=== PATIENT | female | born 1985 | race Two or more races ===

== ENCOUNTER 2018-02-27 15:02 | Emergency (ER) | payer OTHER ==
[~2018-02-27] VITALS: Ht 162.6 cm; Wt 57.6 kg
[2018-02-27 15:15] VITALS: BP 127/78
--- NOTE | 2018-02-27 15:15 | NUR ---
ED Nurse Note: pt came in self ambulatory c/o left arm pain 11/04. per boyfriend (franki) pt fell doing box jumps and landed on left arm. per boyfriend " her bone was protruding so i freaked out and pushed it back in place". pt arm elbow region is swollen. pt looks comfortable. took 1 200mg advil. vss. will monitor further and await new orders
[2018-02-27] MEDS ORDERED: fentaNYL 100 mcg/2 mL IV ONE (16:30)
[2018-02-27] MEDS ORDERED: Ketorolac 30mg Inj IV ONE (16:30)
--- NOTE | 2018-02-27 16:38 | NUR ---
ED Nurse Note: xray at bedside
--- NOTE | 2018-02-27 16:48 | Emergency Room Report ---
History of Present Illness General Chief Complaint: Upper Extremity Injury Source: Patient Present Illness HPI Patient fell onto her left elbow yesterday. She was jumping onto a platform for exercise. She fell backwards. There was deformity at that time but her boyfriend moved her arm and it seemed to pop back into place. She has swelling there and thinks it might still be dislocated. She took ibuprofen yesterday. The ibuprofen helps with the pain. She is had her arm in a sling. The pain is rated 10/10, aching with pressure. She denies any numbness. There is no loss of consciousness. She denies any other extremity pain at this time. Right-handed. No fevers, chills, chest pain, palpitations, nausea, vomiting, diarrhea, dysuria , abdominal pain, shortness of breath, depression, visual changes, headache. She not at this time. Allergies: Coded Allergies: No Known Allergies (Unverified , 02/27/18) Patient History Past Medical History: see triage record Social History: Denies: smoking, alcohol use, drug use Social History Narrative Born in [facility] -works in a restaurant [employer] Last Menstrual Period: 01/2018 Now: No Reviewed Nursing Documentation: PMH: Agreed; PSxH: Agreed Nursing Documentation-PMH Past Medical History: No Stated History Review of Systems All Other Systems: negative except mentioned in HPI Physical Exam Vital Signs Date Time Temp Pulse Resp B/P (MAP) Pulse Ox O2 Delivery O2 Flow Rate FiO2 02/27/18 15:06 98.4 83 20 127/78 98 Room Air Sp02 EP Interpretation: reviewed, normal General Appearance: well appearing, no apparent distress, GCS 15 Head: normocephalic Eyes: bilateral eye normal inspection, bilateral eye PERRL ENT: moist mucus membranes Neck: supple Respiratory: lungs clear, normal breath sounds Cardiovascular #1: regular rate, rhythm Cardiovascular #2: 2+ radial (R) Gastrointestinal: normal inspection, non tender Musculoskeletal: back normal, gait/station normal, swelling - Left elbow, tender - To palpation without tenderness in the radial head. Decreased range of motion with tenderness. No crepitance. Forearm without swelling or pain with passive movement of her wrist and hand. Shoulder without discomfort. Neurologic: alert, oriented x3, other - Median radial and ulnar nerve sensation normal and motor function normal and the hand., grossly normal Psychiatric: mood/affect normal Skin: normal inspection, warm/dry, other - No ecchymosis yet Medical Decision Making Diagnostic Impression: Primary Impression: Elbow injury Qualified Codes: S59.902A - Unspecified injury of left elbow, initial encounter Additional Impression: Elbow dislocation Qualified Codes: S53.105A - Unspecified dislocation of left ulnohumeral joint , initial encounter ER Course Patient presents with left elbow injury with a question of dislocation. Based on her exam it does not appear dislocated at this time however there is much swelling. X-rays are indicated. Differential also includes fracture. An IV is established for analgesia and possibly needing sedation for reduction. X-rays without fracture or dislocation. There is soft tissue swelling. X-ray results were discussed with the patient. She has improvement after analgesia. A splint was applied by the roadway technician. Also she was put back in the sling she came with which is adequate. Position was excellent and neurovascular was checked by me and normal. Follow-up with an machine specialist was advised. Also treatment with elevation and ice was recommended. Patient stable for outpatient observation and treatment. Other X-Ray Diagnostic Results Other X-Ray Diagnostic Results : X-Ray ordered: L elbow # of Views/Limited Vs Complete: 3 View Indication: Other EP Interpretation: Yes Interpretation: no dislocation, no fractures, other - STS Impression: Other Electronically Signed by: Electronically signed by Kenji Noel MD Last Vital Signs Date Time Temp Pulse Resp B/P (MAP) Pulse Ox O2 Delivery O2 Flow Rate FiO2 02/27/18 17:13 98.4 20 127/78 98 Room Air 02/27/18 15:06 83 Status: improved Disposition: HOME, SELF-CARE Condition: Improved Scripts Tramadol Hcl* (ULTRAM*) 50 Mg Tablet 50 MG ORAL Q6H PRN for For Pain, #10 TAB 0 Refills Prov: Kenji Noel MD 02/27/18 Ibuprofen* (MOTRIN*) 600 Mg Tablet 600 MG ORAL Q6H PRN for For Pain, #20 TAB Prov: Kenji Noel MD 02/27/18 Kenji Noel MD Feb 27, 2018 16:48
[2018-02-27] MEDS ORDERED: IBUPROFEN600 MG ORAL (16:51)
[2018-02-27] MEDS ORDERED: TRAMADOL HCL50 MG ORAL (16:51)
--- NOTE | 2018-02-27 17:10 | NUR ---
ED Nurse Note: Pt. AAOx4. ambulatory. Left with steady gait. Pt. education done regarding d/c papers and prescriptions.Pt. verbalized the understanding of the teaching. IV access removed. ID armband removed. pt took all belongings
--- NOTE | 2018-03-01 15:49 | Diagnostic Imaging Report ---
Indication: Elbow pain and swelling Findings: 3 views of the left elbow were obtained. No acute fractures, malalignment, erosions or periostitis are identified. Soft tissue swelling noted. Impression: No acute injury
== END 2018-02-27 17:10 | disposition home or self-care (01) ==
LOC: EMR 17:05
DX: S53.105A Unspecified dislocation of left ulnohumeral joint, initial encounter (principal); Y93.B9 Activity, other involving muscle strengthening exercises; Y92.89 Other specified places as the place of occurrence of the external cause
CPT/HCPCS: 29105; 73080; 96374; 96375; 99284; J1885; J3010